=== PATIENT | female | born 1970 | race Two or more races ===

== ENCOUNTER 2024-05-18 20:39 | Inpatient (IN) | payer OTHER ==
[~2024-05-18] VITALS: Ht 152.4 cm; Wt 66.7 kg
--- NOTE | 2024-05-18 20:57 | NUR ---
PTE ALERTA Y ORIENTADA X 3 ESFERAS QUIEN REFIERE HEMAL LE REALIZARON COLONOSCOPIA POR DR SRINIVASAN.INDICA EN EL ANGLE DE HOY COMENZO CON DIARREAS Y DOLOR EN CUADRANTE RT.SE OBSERVA PTE ANSIOSA.
[2024-05-18] MEDS ORDERED: ONDANSETRON HCL 2 MG/ML VIAL IV ONE (21:30)
[2024-05-18] MEDS ORDERED: CHOLESTYRAMINE/ASPARTAME LIGHT 4 G/PKT PACKET PO ONE (21:30)
[2024-05-18] MEDS ORDERED: FAMOtidine 10 MG/ML (4ML VIAL) IV ONE (21:30)
[2024-05-18] MEDS ORDERED: 0.9 % SODIUM CHLORIDE 1,000 ML IV ONE (21:30)
[2024-05-18] MEDS ORDERED: HYOSCYAMINE SULFATE 0.125 MG TAB.SUBL ONE (21:31)
[2024-05-18] MEDS ORDERED: FAMOTIDINE/PF 20 MG/2 ML VIAL ONE (21:31)
[2024-05-18] MEDS ORDERED: ONDANSETRON HCL 2 MG/ML VIAL ONE (21:31)
--- NOTE | 2024-05-18 21:42 | NUR ---
SE CANALIZA Y SE ADMINITRA MEDICAMENTOS RASHEEDA ORDENMEDICA. PENDIENTE A ENTREGA MUESTRA FECAL
[2024-05-18] MEDS ORDERED: HYOSCYAMINE SULFATE 0.125 MG TAB.SUBL SL ONE (21:45)
[2024-05-18] MEDS ORDERED: METRONIDAZOLE/SODIUM CHLORIDE 500 MG/100 ML PIGGYBACK IV ONE ×2 (23:42→23:45)
[2024-05-18] MEDS ORDERED: CIPROFLOXACIN IN 5 % DEXTROSE 400 MG/200 ML PIGGYBAG IV ONE ×2 (23:42→23:45)
[2024-05-18 23:59] LABS: HEMOGLOBIN 13.9 g/dL (12.0-15.00); MEAN CELL VOLUME 78.1 fL (80.00-100.00); MEAN CORPUSCULAR HEMOGLOBIN 25.9 pg (27.00-32.0); MEAN CORPUSCULAR HGB CONC 33.2 g/dl (32.0-36.0); PLATELET COUNT 256 K/uL (150-450); RED BLOOD COUNT 5.38 M/uL (4.00-6.00); RED CELL DISTRIBUTION WIDTH 14.8 % (11.5-14.5)
[2024-05-19 00:48] LABS: INR 1.19; PARTIAL THROMBOPLASTIN TIME 30.5 SECONDS (22.0-34.0); PROTHROMBIN TIME 12.8 SECONDS (9.0-11.5)
[2024-05-19 00:53] LABS: ALBUMIN 2.4 gm/dL (3.4-5.0); BILIRUBIN TOTAL 1.44 mg/dL (0.3-1.2); CALCIUM 8.7 mg/dL (8.5-10.1); CREATININE SERUM 0.72 mg/dL (0.55-1.02); GFR 85.06; GLOBULINA 4.7 G/DL (2.4-3.5); POTASSIUM 3.54 mEq/L (3.5-5.1); TOTAL PROTEIN 7.1 gm/dL (6.4-8.2)
[2024-05-19 01:02] LABS: PH,URINE 5.5 (5.0-8.0); URINE APPEARANCE Cloudy; URINE BILIRRUBIN Negative (NEGATIVE); URINE BLOOD Small; URINE COLOR Dark Yellow; URINE GLUCOSE Negative (NEGATIVE); URINE KETONE Trace (NEGATIVE); URINE LEUKOCYTE Moderate; URINE NITRATE Negative; URINE PROTEIN Trace (NEGATIVE)
[2024-05-19 01:07] LABS: URINE BACTERIA 1433.2 uL (0.0-1933); URINE CAST 6.62 uL (0.0-1.40); URINE EPITHELIAL CELLS 37.9 uL (0.0-38.8); URINE RBC 22.8 uL (0.0-20.8); URINE WBC 125.2 uL (0.0-23.2)
[2024-05-19] MEDS ORDERED: 0.9 % SODIUM CHLORIDE 1,000 ML IV ONE (03:00)
[2024-05-19 03:10] LABS: BILIRUBIN TOTAL 1.33 mg/dL (0.3-1.2); BILIRUBIN,CONJUGATED 0.83 mg/dL (0.0-0.2); BILIRUBIN,UNCONJUGATED 0.5 mg/dL (0.0-0.6)
[2024-05-19] MEDS ORDERED: MORPHINE SULFATE 4 MG/ML VIAL IV STA (03:34)
--- NOTE | 2024-05-19 07:17 | NUR ---
PACIENTE ALERTA Y ORIENTADO X3 EN COMPANIA DE FAMILIAR A QUIENES SE LES ORIENTA SOBRE CONTINUIDAD DE TRATAMIENTO MEDICO Y REFIERE ENTENDER, SE OBSERVA PACIENTE EN WAYNE, [place]LEV[place] Y EN [place] NIVEL MAS BAJO POR PRECAUCION A CAIDAS. PACIENTE PREVIAMENTE CANALIZADA RECIBIENDO IV FLUIDS RASHEEDA ORDEN. SE MONITOREAN S/V Y SE MANTIENE PACIENTE BAJO OBSERVACION POR CAMBIOS EN [place] CONDICION.
[2024-05-19 08:34] VITALS: BP 105/73
[2024-05-19] MEDS ORDERED: MORPHINE SULFATE 4 MG/ML CARTRIDGE IV ONE (09:00)
--- NOTE | 2024-05-19 15:21 | NUR ---
PTE ALERTA Y ORIENTADA X3 ESFERAS QUIEN REFIERE DOLOR LUEGO DE COMER. PTE EN WAYNE CON BARANDAS ELEVADAS,EN COMPANIA DE FAMILIAR.AREA DE VENOPUNCION PATENTE Y ELEANOR DE EDEMA CON FLUIDOS DE MANTENIMIENTO.PENDIENTE A EVALUACION DE DR HARGROVE.
[2024-05-19] MEDS ORDERED: 0.9 % SODIUM CHLORIDE 1,000 ML IV SCH (15:45)
[2024-05-19] MEDS ORDERED: NICOTINE 21MG/24HR PATCH.TD24 TD SCH (15:46)
[2024-05-19 17:47] LABS: ABG PH 7.397 (7.35-7.45); ABG PO2 63.8 mmHg (80-100); ABG pCO2 33.8 mmHg (35-45); BASE EXCESS -3.6 mmol/l; BICARBONATE 20.4 mmol/l (23-25); SaO2 91.7 %; Tco2 21.4 mmol/l
[2024-05-19 17:56] LABS: allen test SATISFACTORY; o2 21 %; puncture site RADIAL RIGHT
[2024-05-19 18:42] VITALS: BP 124/80; O2SAT 97
[2024-05-19] MEDS ORDERED: ACETAMINOPHEN 500 MG GEL..CAP PO NR (19:30)
[2024-05-19 20:36] VITALS: BP 114/63
[2024-05-19] MEDS ORDERED: FUROsemide 20 MG/2 ML VIAL IV SCH (21:00)
[2024-05-20 01:04] VITALS: BP 121/80
[2024-05-20] MEDS ORDERED: FAMOTIDINE/PF 20 MG/2 ML VIAL IV SCH (03:30)
[2024-05-20] MEDS ORDERED: ACETAMINOPHEN 325 MG TABLET PO ONE (03:30)
[2024-05-20 08:37] VITALS: BP 105/64; O2SAT 100
[2024-05-20] MEDS ORDERED: DIPHENHYDRAMINE HCL 50 MG/ML VIAL 1ML IV STA (08:44)
[2024-05-20] MEDS ORDERED: METHYLPREDNISOLONE SOD SUCC 40 MG VIAL IV STA (08:44)
[2024-05-20] MEDS ORDERED: NICOTINE 21MG/24HR PATCH.TD24 TD SCH (09:00)
[2024-05-20] MEDS ORDERED: ACETAMINOPHEN 500 MG GEL..CAP PO PRN (17:00)
[2024-05-20 17:34] VITALS: BP 147/77; O2SAT 95
[2024-05-20] MEDS ORDERED: KETOROLAC TROMETHAMINE 30 MG VIAL ONE (20:29)
[2024-05-20 20:43] LABS: TP PLEURAL FLUID 3.3 g/dl
[2024-05-20] MEDS ORDERED: KETOROLAC TROMETHAMINE 30 MG VIAL IV ONE (20:45)
[2024-05-20 21:14] LABS: MONONUCLEAR 99 %; PLEURAL FLUID APPEARANCE HAZY; PLEURAL FLUID COLOR YELLOW; POLYMORPHONUCLEAR 1 %
[2024-05-21 01:14] VITALS: BP 142/92
[2024-05-21 05:27] LABS: HEMATOCRIT 40.2 % (36.0-45.00); HEMOGLOBIN 13.2 g/dL (12.0-15.00); MEAN CELL VOLUME 79.2 fL (80.00-100.00); MEAN CORPUSCULAR HEMOGLOBIN 25.9 pg (27.00-32.0); MEAN CORPUSCULAR HGB CONC 32.8 g/dl (32.0-36.0); PLATELET COUNT 264 K/uL (150-450); RED BLOOD COUNT 5.08 M/uL (4.00-6.00); RED CELL DISTRIBUTION WIDTH 15.2 % (11.5-14.5)
[2024-05-21 06:24] LABS: ALBUMIN 2.2 gm/dL (3.4-5.0); BILIRUBIN TOTAL 1.12 mg/dL (0.3-1.2); BILIRUBIN,CONJUGATED 0.6 mg/dL (0.0-0.2); BILIRUBIN,UNCONJUGATED 0.52 mg/dL (0.0-0.6); CALCIUM 8.4 mg/dL (8.5-10.1); CREATININE SERUM 0.76 mg/dL (0.55-1.02); GFR 79.91; POTASSIUM 3.98 mEq/L (3.5-5.1); TOTAL PROTEIN 6.1 gm/dL (6.4-8.2)
[2024-05-21 08:18] VITALS: BP 136/89
[2024-05-21] MEDS ORDERED: DIPHENHYDRAMINE HCL 50 MG/ML VIAL 1ML IV NR (09:00)
[2024-05-21] MEDS ORDERED: METHYLPREDNISOLONE SOD SUCC 40 MG VIAL IV NR (09:00)
[2024-05-21] MEDS ORDERED: ENOXAPARIN SODIUM 40 MG/0.4 ML SYRINGE SUBCUTANEO SCH (09:11)
[2024-05-21] MEDS ORDERED: KETOROLAC TROMETHAMINE 30 MG VIAL IV PRN (09:15)
[2024-05-21 19:02] VITALS: BP 134/89
[2024-05-21] MEDS ORDERED: FAMOTIDINE/PF 20 MG/2 ML VIAL IV PUSH STA (19:17)
[2024-05-22 00:43] VITALS: BP 136/88; O2SAT 89
[2024-05-22] MEDS ORDERED: FAMOTIDINE/PF 20 MG/2 ML VIAL IV SCH (09:00)
[2024-05-22 09:04] VITALS: BP 134/86
== END 2024-05-22 10:03 | disposition home or self-care (01) | DRG 181 ==
LOC: ER 20:42 → MEDI 05-19 16:00 → EDBD 05-19 16:00 → SEC-K 05-19 16:00 → MEDI 05-19 17:23
PROVIDERS: General Practice; Radiology Vascular & Interventional Radiology; ADMIT Internal Medicine; ATTEND Internal Medicine
PROC: BW21YZZ Computerized Tomography (CT Scan) of Abdomen and Pelvis using Other Contrast (ICD-10-PCS; 2024-05-18)
PROC: BB24YZZ Computerized Tomography (CT Scan) of Bilateral Lungs using Other Contrast (ICD-10-PCS; principal; 2024-05-19)
PROC: BW21YZZ Computerized Tomography (CT Scan) of Abdomen and Pelvis using Other Contrast (ICD-10-PCS; 2024-05-19)
PROC: 0W9B3ZZ Drainage of Left Pleural Cavity, Percutaneous Approach (ICD-10-PCS; 2024-05-20)
PROC: 0FB13ZX Excision of Right Lobe Liver, Percutaneous Approach, Diagnostic (ICD-10-PCS; 2024-05-20)
PROC: B030YZZ Magnetic Resonance Imaging (MRI) of Brain using Other Contrast (ICD-10-PCS; 2024-05-21)
DX: C78.2 Secondary malignant neoplasm of pleura (principal); C78.7 Secondary malignant neoplasm of liver and intrahepatic bile duct; C79.81 Secondary malignant neoplasm of breast; J90 Pleural effusion, not elsewhere classified; R18.8 Other ascites; J98.11 Atelectasis; R91.1 Solitary pulmonary nodule; R19.7 Diarrhea, unspecified; F43.21 Adjustment disorder with depressed mood
CPT/HCPCS: 70552